=== PATIENT | male | born 2000 | race African-American/Black ===

== ENCOUNTER 2018-02-13 10:11 | Day surgery (SDC) | payer BC ==
[2018-02-13] MEDS ORDERED: cefOXitin 2 GM, Syringe 1 ML in Sterile Water 10 ML SLOW IVP SCH (10:30)
[2018-02-13] MEDS ORDERED: Bupivacaine/Epinephrine 0.25% 30 ML VIAL ONE (11:12)
[2018-02-13] MEDS ORDERED: Midazolam HCl 2 mg/2 ml Vial ONE ×2 (11:21→11:22)
[2018-02-13] MEDS ORDERED: Fentanyl 250 MCG/5 ML VIAL ONE (11:22)
--- NOTE | 2018-02-13 13:07 | OP ---
PREOPERATIVE DIAGNOSIS: Acute appendicitis. SURGEON: Aubrey Andrade M.D. PROCEDURE PERFORMED: Laparoscopic appendectomy. INDICATIONS: A 17-year-old male with an 18-hour history of right lower quadrant pain. He went to [facility] emergency room where a CT scan showed appendicitis. FINDINGS: Very early or mild appendicitis. PROCEDURE IN DETAIL: After informed consent was obtained, the patient was taken to the operating tuut m, given general endotracheal anesthesia, placed in the supine position. His abdomen was prepped and draped in usual fashion. Local anesthesia infiltrated subcutaneously and deep subumbilical incision was performed. The subcu divided sharply. The fascia grasped and two stay sutures of 0 Vicryl plac ed to either side of midline. Midline incised. Digital palpation revealed no local adhesions. A bl unt 10-12 mm trocar inserted. Pneumoperitoneum was created to a pressure of 15 mmHg. Zero degree la paroscope was inserted under direct vision, two 5-mm ports were placed, one suprapubic and one right lateral abdomen. The mesoappendix was divided utilizing a LigaSure. The base of appendix was divide d at the cecum utilizing a linear 45 mm white load stapler. Then, the appendix was placed in an Endo sac and removed from the abdomen in an Endosac. Hemostasis was assured. Trocars and retractors clair lisa. The fascia closed with interrupted 0 Vicryl suture. Skin closed with interrupted 4-0 Rapide. Dermabond applied. The patient tolerated the procedure well and was transferred to recovery in good condition. Sponge and needle count verified correct x2.
[2018-02-13] MEDS ORDERED: Morphine 2 MG/ML SYRINGE ONE ×2 (13:27→14:04)
[2018-02-13] MEDS ORDERED: Promethazine HCl 25 MG/ML VIAL ONE (14:04)
[2018-02-13] MEDS ORDERED: Propofol 200 MG/20 ML VIAL ONE (15:02)
[2018-02-13] MEDS ORDERED: Ondansetron HCl/PF 4 MG/2 ML Vial ONE (15:02)
[2018-02-13] MEDS ORDERED: Lidocaine 1% PF 5 ML VIAL ONE (15:02)
[2018-02-13] MEDS ORDERED: Glycopyrrolate 0.2 MG/ML 5 ML SYRINGE ONE (15:02)
[2018-02-13] MEDS ORDERED: Ketorolac Tromethamine 30 MG/ML VIAL ONE (15:02)
[2018-02-13] MEDS ORDERED: Dexamethasone 20 MG/5 ML VIAL ONE (15:02)
== END 2018-02-13 14:42 | disposition home or self-care (01) ==
LOC: SDC 10:11
PROVIDERS: ATTEND Surgery
PROC: 0DTJ4ZZ Resection of Appendix, Percutaneous Endoscopic Approach (ICD-10-PCS; principal; 2018-02-13)
DX: K35.80 Unspecified acute appendicitis (principal)
CPT/HCPCS: 88304; 96374; 96375; A4216; J0131; J0694; J1100; J1885; J2001; J2250; J2270; J2405; J2550; J2704; J3010